=== PATIENT | male | born 2000 | race Caucasian/White ===

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

== ENCOUNTER 2019-01-25 13:20 | Emergency (ER) | payer BC, SELFPAY ==
[2019-01-25 13:21] VITALS: BP 128/84; PULSE 86; RESP 14; TEMP 37.1; O2SAT 98; BMI 21.9
[2019-01-25] MEDS: Tetracaine 0.5% Ophthalmic Bottle OPHTHALMIC (14:17)
[2019-01-25] MEDS: Fluorescein 1 MG STRIP 1 STRIP OPHTHALMIC (14:17)
--- NOTE | 2019-01-25 15:49 | ED.DCSUM_ITS ---
- ER Visit Summary Date of Service: 01/25/19 Chief Complaint: Right eye pain History of Present Illness: The patient is a 18 M who presents with right eye pain that began last evening. Patient states the pain began rather suddenly. Patient states she is having watery discharge from his right eye. Patient denies any trauma or injury. Patient admits to some redness and burning from the right eye. Patient admits to photophobia. Patient wears glasses but does not wear contact lenses. Physical Examination: Vital signs are stable. Patient is afebrile. Patient is in no acute distress. Pupils are equal, round, and reactive to light bilaterally. Conjunctiva is injected on the right. Anterior chamber is clear. There are no foreign bodies noted. There is no lid edema noted.. Funduscopic examination was not tolerated due to pain. Tetracaine and fluorescein dye was applied. There is a corneal abrasion over the inferior medial aspect of the right cornea on slit lamp examination. Heart with regular rate and rhythm. Lungs are clear and equal bilaterally. Emergency Department Course and Treatment: Patient was given a dose of bacitracin ophthalmic ointment here. Patient was given bacitracin ophthalmic ointment for home. Patient was instructed to apply bacitracin ophthalmic ointment to the right eye every 4 hours while awake. Patient was instructed to follow-up with his primary care physician or pest control service sales agent in 1 to 2 days. Patient understood and was agreeable with the plan. All questions were answered. Disposition: Discharge home Impression: Corneal abrasion right eye This note was generated with [employer] dictation software. It may contain incorrect words, spelling, and punctuation that were not noted in review of the chart prior to signing ED Disposition - Plan for ED Patient: Disposition: Home or Assisted Living Diagnosis: Right corneal abrasion Instructions: ED Corneal Abrasion Referrals: Care Physician,No Primary [Primary Care Provider] - Jefferson Shaikh MD [NON-STAFF] - 1-2 Days if not improving
[2019-01-25 16:07] VITALS: PULSE 79; RESP 12
== END 2019-01-25 16:07 | disposition home or self-care (01) ==
PROVIDERS: Emergency Provider Emergency Medicine
DX: S05.01XA Injury of conjunctiva and corneal abrasion without foreign body, right eye, initial encounter (principal); Y93.9 Activity, unspecified; Y92.9 Unspecified place or not applicable; R11.0 Nausea; J34.89 Other specified disorders of nose and nasal sinuses
CPT/HCPCS: 99283